=== PATIENT | male | born 1980 | race American Indian/Alaskan Native ===

== ENCOUNTER 2018-06-24 13:46 | Emergency (ER) | payer SELFPAY ==
[2018-06-24 14:00] VITALS: BP 135/85; PULSE 87; RESP 16; TEMP 97.8; O2SAT 98
--- NOTE | 2018-06-24 14:34 | C.PDOC ---
History Of Present Illness 37 y/o male presents to the ED complaining of a left-sided toothache, worsening since 2-3 days ago. Pain has progressively worsened, and is radiating back toward his left ear and jaw line. Patient admits that while eating a hard piece of food 2 months ago, one of his left posterior teeth broke off. He notes the pain progressively been chipping off since. Of note, patient has not seen a dentist in the last 10 years. Otherwise he denies any fevers or chills. Time Seen by Provider: 06/24/18 13:57 Chief Complaint (Nursing): Dental Pain History Per: Patient History/Exam Limitations: no limitations Onset/Duration Of Symptoms: Days Current Symptoms Are (Timing): Still Present Severity: Moderate Quality: Positive for: Sharp Recent travel outside of the [place]: No Past Medical History Reviewed: Historical Data, Nursing Documentation, Vital Signs Vital Signs: Last Vital Signs Temp 97.8 F 06/24/18 13:58 Pulse 87 06/24/18 13:58 Resp 16 06/24/18 13:58 BP 135/85 06/24/18 13:58 Pulse Ox 98 06/24/18 13:58 - Medical History PMH: Asthma Family History: States: Unknown Family Hx - Social History Hx Tobacco Use: No Hx Alcohol Use: Yes Hx Substance Use: No - Immunization History Hx Tetanus Toxoid Vaccination: No Hx Influenza Vaccination: No Hx Pneumococcal Vaccination: No Review Of Systems Except As Marked, All Systems Reviewed And Found Negative. Constitutional: Negative for: Fever, Chills ENT: Positive for: Other (Toothache). Negative for: Mouth Swelling, Throat Pain Physical Exam - Physical Exam Appears: Well, Non-toxic, No Acute Distress Skin: Normal Color, Warm, Dry Head: Atraumatic, Normacephalic Eye(s): bilateral: Normal Inspection Ear(s): Bilateral: Normal, Other (No mastoid tenderness) Oral Mucosa: Moist Teeth: Caries (Tooth #14 dental [facility]) Gingiva: Normal Appearing, No Swelling, No Abscess Neck: Normal ROM, Supple Neurological/Psych: Oriented x3, Normal Speech ED Course And Treatment O2 Sat by Pulse Oximetry: 98 (RA) Pulse Ox Interpretation: Normal Medical Decision Making Medical Decision Making: Impression: Toothache, left-sided Plan: - 500 mg Amoxicillin PO - 600 mg Motrin PO Patient provided with resources for local dental clinics. Counseled regarding the importance of followup with dentist. Disposition Counseled Patient/Family Regarding: Diagnosis, Need For Followup, Rx Given - Disposition Disposition: HOME/ ROUTINE Disposition Time: 14:40 Condition: STABLE Additional Instructions: follow up with dental clinic within 2 days call to make an appointment take medications as prescribed return to ER if symptoms worsens or progress Prescriptions: Amoxicillin 875 mg PO BID #20 tablet Naproxen [Naprosyn] 500 mg PO BID PRN #16 tab PRN Reason: Pain, Moderate (4-7) Instructions: Dental Pain (DC) Forms: [facility] (Mauritanian), General Discharge Instructions - Clinical Impression Clinical Impression: Dental caries - Scribe Statement The provider has reviewed the documentation as recorded by the Darius Pires Provider Attestation: All medical record entries made by the Darius were at my direction and personally dictated by me. I have reviewed the chart and agree that the record accurately reflects my personal performance of the history, physical exam, medical decision making, and the department course for this patient. I have also personally directed, reviewed, and agree with the discharge instructions and disposition.
== END 2018-06-24 14:49 | disposition home or self-care (01) ==
LOC: C.ER 13:46
DX: K02.9 Dental caries, unspecified (principal)